=== PATIENT | male | born 1975 | race Caucasian/White ===

== ENCOUNTER 2019-02-06 13:33 | Emergency (ER) | payer OTHER ==
[~2019-02-06] VITALS: Wt 89.0 kg
[2019-02-06 13:36] VITALS: BP 136/69; PULSE 78; RESP 18
[2019-02-06] MEDS ORDERED: MED4DP PO (14:05)
[2019-02-06] MEDS ORDERED: ACET325T33 PO (14:05)
[2019-02-06] MEDS ORDERED: CYCL10TA7 PO (14:05)
--- NOTE | 2019-02-06 14:18 | ERD ---
ER Documentation Chief Complaint Chief Complaint BACK PAIN x 3 WEEKS HPI 43-year-old male presenting to the ER for lower back pain x3 weeks. Patient states that he initially hurt his back lifting up a rug patient denies hearing any pops during the injury. Patient states he is just had 9 out of 10 back pain that is been consistent since the injury and is not getting better. Patient states he is tried Advil it is not helping. Patient patient states he does have some shooting pain that goes down the backside of his left leg if he aggravates the pain. Patient states he is taking Wellbutrin and has a history of schizophrenia. Patient denies any allergies to medications. ROS All systems reviewed and are negative except as per history of present illness. Medications Home Meds Active Scripts Acetaminophen* (Tylenol*) 325 Mg Tablet, 2 TAB PO Q6 PRN for PAIN AND OR ELEVATED TEMP, #20 TAB Prov:ARACELIS ANGEL PA-C 02/06/19 Methylprednisolone* (Medrol* DOSE PACK) 4 Mg/Dose-Pack Tab.ds.pk, 4 MG PO . DI RECTED for 7 Days, PACKET Prov:ARACELIS ANGEL PA-C 02/06/19 Cyclobenzaprine Hcl* (Cyclobenzaprine Hcl*) 10 Mg Tablet, 10 MG PO TID, #15 TAB Prov:ARACELIS ANGEL PA-C 02/06/19 FmHx Family History: No diabetes, No coronary disease, No other Physical Exam Vitals Vital Signs Date Temp Pulse Resp B/P (MAP) Pulse Ox O2 O2 Flow FiO2 Time Delivery Rate 02/06/19 98.0 78 18 136/69 99 13:36 (91) Physical Exam Const: No acute distress Head: Atraumatic Resp: Clear to auscultation bilaterally Cardio: Regular rate and rhythm, no murmurs Abd: Soft, non tender, non distended. Normal bowel sounds Skin: No petechiae or rashes Back: Patient has pain on palpation to the left lower SI joint, no masses palpated, no ecchymosis. no CVA tenderness, patient has good range of motion. Pain was provoked when laying patient was asked to extend his left leg up. Patient states that he felt pain in his left lower back during this examination. Ext: No cyanosis, or edema Procedures/MDM Medical decision making: Patient 43-year-old male presenting with lower back pain x3 weeks. Based on history and physical exam the injury is most consistent with a lower back strain. Patient was advised that he should continue daily activity with moderate movement that laying in bed would be the worst thing to do for the back pain. Patient was advised to use heating pads and is being given a prescription for cyclobenzaprine, Medrol Dosepak, acetaminophen for pain and inflammation. The patient denies any IV drug and is afebrile use and at this time I have low suspicion for epidural abscess, cauda equine syndrome, spinal fractures, epidural abscess, spinal metastases, osteomyelitis, aortic dissection, ruptured or leaking AA, DJD, sciatica, lumbar strain, muscle spasm, pyelonephritis or nephrolithiasis. . The patient has no radiculopathy pain but pain was re- provoked when he was asked to lift his left leg up. Patient was advised to follow-up with his primary care provider [facility] within 1 to 2 days regarding this visit. Patient was advised if symptoms worsen to return to the ER immediately. The medications were discussed with the patient prior to discharge. The patient is in agreement to the treatment plan and had no further questions upon discharge Prescription for home: Cyclobenzaprine Acetaminophen Medrol Dosepak Discharge: At this time, patient is stable for discharge and outpatient management. I have instructed the patient to follow-up with his\her primary care physician in 1 to 2 days. I have discussed with the patient the possibility of needing to see a specialist for further work-up and imaging studies if symptoms persist. I have instructed the patient to promptly return to the ER for any new or worsening symptoms including increased pain, fever, nausea, vomiting, weakness or LOC. The patient and\or family expressed understanding of and agreement with this plan. All questions were answered. Home care instructions were provided. Disclaimer: Inadvertent spelling and grammatical errors are likely due to EHR\dictation sof [employer] use and do not reflect on the overall quality of patient care. Also, please note that the electronic time recorded on the note does not necessarily reflect the actual time of the patient encounter. Departure Diagnosis: Primary Impression: Low back strain Encounter type: initial encounter Qualified Codes: S39.012A - Strain of muscle, fascia and tendon of lower back, initial encounter Condition: Good Patient Instructions: Back Sprain/Strain Referrals: COMMUNITY CLINICS YOU HAVE RECEIVED A MEDICAL SCREENING EXAM AND THE RESULTS INDICATE THAT YOU DO NOT HAVE A CONDITION THAT REQUIRES URGENT TREATMENT IN THE EMERGENCY DEPARTMENT. FURTHER EVALUATION AND TREATMENT OF YOUR CONDITION CAN WAIT UNTIL YOU ARE SEEN IN YOUR DOCTORS OFFICE WITHIN THE NEXT 1-2 DAYS. IT IS YOUR RESPONSIBILITY TO MAKE AN APPOINTMENT FOR FOLOW-UP CARE. IF YOU HAVE A PRIMARY DOCTOR --you should call your primary doctor and schedule an appointment IF YOU DO NOT HAVE A PRIMARY DOCTOR YOU CAN CALL OUR PHYSICIAN REFERRAL HOTLINE AT IF YOU CAN NOT AFFORD TO SEE A PHYSICIAN YOU CAN CHOSE FROM THE FOLLOWING [facility] [address] [facility]. [facility] [address] [facility] [facility] [address] [facility] [facility] [address] [facility] [facility] [address] [facility]. [facility]. [address] [place] Additional Instructions: FOLLOW UP WITH YOUR PRIMARY CARE PHYSICIAN TOMORROW.Return to this facility if you are not improving as expected. ARACELIS ANGEL PA-C Feb 06, 2019 14:17
== END 2019-02-06 14:21 | disposition home or self-care (01) ==
LOC: FTE 13:33
DX: S39.012A Strain of muscle, fascia and tendon of lower back, initial encounter (principal); X50.0XXA Overexertion from strenuous movement or load, initial encounter; Y92.9 Unspecified place or not applicable
CPT/HCPCS: 99283